=== PATIENT | male | born 1965 ===

== ENCOUNTER 2017-08-27 07:59 | Emergency (ER) | payer MEDICAID, OTHER ==
[2017-08-27 08:07] VITALS: TEMP 98; O2SAT 100
[2017-08-27 08:08] VITALS: BMI 36.6
--- NOTE | 2017-08-27 09:33 | ED PDOC ---
Upper Extremity Pain/Injury Time Seen by Provider: 08/27/17 09:12 Chief Complaint (Nursing): Upper Extremity Problem/Injury Chief Complaint (Provider): wrist pain History Per: Patient History/Exam Limitations: no limitations Onset/Duration Of Symptoms: Days (1 year) Current Symptoms Are (Timing): Still Present Additional Complaint(s): Pt. with R wrist pain on moving wrist and tapping the wrist. Pain goes into the hand ventrally. Is like a shock/sharp pain. No numbness, weakness, injury , headaches, dizziness, pain elsewhere. No chest pain. 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 Past Medical History Reviewed: Nursing Documentation, Vital Signs Vital Signs: Last Vital Signs Temp 98 F 08/27/17 08:06 Pulse 81 08/27/17 08:06 Resp BP 146/91 H 08/27/17 08:06 Pulse Ox 100 08/27/17 08:06 - Medical History PMH: No Chronic Diseases - Surgical History Surgical History: Cholecystectomy - Family History Family History: States: Unknown Family Hx - Home Medications Home Medications: Ambulatory Orders Medication Instructions Recorded Oxycodone HCl/Acetaminophen 1 each PO Q6H PRN #30 tablet 10/16/15 [Percocet 5-325 mg Tablet] Ibuprofen [Motrin] 600 mg PO TID 7 Days tab 08/27/17 - Allergies Allergies/Adverse Reactions: Allergies Allergy/AdvReac Type Severity Reaction Status Date / Time iodine Allergy SWELLING Verified 10/14/15 10:08 venom-honey bee Allergy SWELLING Verified 10/14/15 10:08 [bee venom (honey bee)] Review of Systems Constitutional: Negative for: Weakness Eyes: Negative for: Vision Change Cardiovascular: Negative for: Chest Pain Respiratory: Negative for: Shortness of Breath Musculoskeletal: Positive for: Other (wrist pain) Neurological: Negative for: Weakness, Headache, Dizziness Physical Exam - Reviewed Nursing Documentation Reviewed: Yes Vital Signs Reviewed: Yes - Physical Exam Appears: Positive for: Non-toxic, No Acute Distress Head Exam: Positive for: ATRAUMATIC, NORMAL INSPECTION, NORMOCEPHALIC Neck: Positive for: Normal, Painless ROM, Supple Cardiovascular/Chest: Positive for: Regular Rate, Rhythm Respiratory: Positive for: Normal Breath Sounds Pulses-Radial (L): 2+ Pulses-Radial (R): 2+ Extremity: Positive for: Tenderness (R wrist anterior; pain on tapping carpal area where pain goes into hand ventral.). Negative for: Normal ROM (pain on movement of wrist and pain on making a fist), Deformity, Swelling Neurologic/Psych: Positive for: Alert, Oriented. Negative for: Motor/Sensory Deficits - ECG O2 Sat by Pulse Oximetry: 100 - Radiology X-Ray: Read By Radiologist X-Ray Interpretation: No Acute Disease - Progress ED Course And Treament: 1106: Stable. AAOx3. Pain free. Tolerated PO. Will give wrist splint. Fu with hand and pcp. Procedures - Splinting Location: R wrist Pre-Made Type: velcro Splint: wrist Pre-Proc Neuro Vasc Exam: normal Post-Proc Neuro Vasc Exam: normal Disposition - Clinical Impression Clinical Impression: Carpal tunnel syndrome - Patient ED Disposition Is Patient to be Admitted: No Counseled Patient/Family Regarding: Studies Performed, Diagnosis, Need For Followup, Rx Given - Disposition Referrals: Hunter Zavaleta MD [Medical Doctor] - 08/31/17 [facility] [Outside] - 08/31/17 Disposition: Routine/Home Disposition Time: 10:07 Condition: STABLE Additional Instructions: Return if not better in 3 days. Prescriptions: Ibuprofen [Motrin] 600 mg PO TID 7 Days tab Instructions: Carpal Tunnel Syndrome Forms: [employer] (Danish)
--- NOTE | 2017-08-27 09:55 | RAD ---
PROCEDURE: Right Wrist Radiographs. HISTORY: pain COMPARISON: None. FINDINGS: BONES: No acute fracture. JOINTS: Unremarkable. SOFT TISSUES: Normal. OTHER FINDINGS: None. IMPRESSION: No demonstrated fracture or dislocation.
[2017-08-27 11:23] VITALS: BP 149/74; PULSE 67; RESP 18
== END 2017-08-27 11:23 | disposition home or self-care (01) ==
LOC: H.ER 07:59
DX: G56.00 Carpal tunnel syndrome, unspecified upper limb (principal)

== ENCOUNTER 2018-02-17 07:53 | Emergency (ER) | payer OTHER ==
[2018-02-17 07:53] VITALS: BMI 36.6
[2018-02-17] MEDS ORDERED: Sodium Chloride 0.9% 1,000 ML IV STA (08:52)
--- NOTE | 2018-02-17 08:54 | ED PDOC ---
HPI: Abdomen Time Seen by Provider: 02/17/18 08:07 Chief Complaint (Nursing): Abdominal Pain Chief Complaint (Provider): lower abdominal pain History Per: Patient History/Exam Limitations: no limitations Onset/Duration Of Symptoms: Days (yesterday at 08:00) Current Symptoms Are (Timing): Still Present Location Of Pain/Discomfort: Other (acros lower abdomen) Associated Symptoms: Chills. denies: Fever, Nausea, Vomiting, Diarrhea, Back Pain, Constipation, Urinary Symptoms Additional Complaint(s): Boo Felipe is a 52 year old male, with no significant past medical history, who presents to the emergency department complaining of a constant lower abdominal pain onset since yesterday at 08:00. He took x2 Aleve last night without relief. Patient also reports chills at night and some dysuria but denies any fever, nausea, vomit, diarrhea, hematochezia, back pain, shoulder pain, or headache. No further medical complaints. PMD: None provided. Past Medical History Reviewed: Historical Data, Nursing Documentation, Vital Signs Vital Signs: Last Vital Signs Temp 99.3 F 02/17/18 07:56 Pulse 92 H 02/17/18 07:56 Resp 16 02/17/18 07:56 BP 144/80 02/17/18 07:56 Pulse Ox 95 02/17/18 12:42 - Medical History PMH: No Chronic Diseases - Surgical History Surgical History: Cholecystectomy - Family History Family History: States: Unknown Family Hx - Social History Current smoker - smoking cessation education provided: No Alcohol: None Drugs: Denies - Home Medications Home Medications: Ambulatory Orders Medication Instructions Recorded Oxycodone HCl/Acetaminophen 1 each PO Q6H PRN #30 tablet 10/16/15 [Percocet 5-325 mg Tablet] Ibuprofen [Motrin] 600 mg PO TID 7 Days tab 08/27/17 AMPicillin [Ampicillin] 500 mg PO QID #40 cap 02/17/18 Acetaminophen [Tylenol 325mg tab] 650 mg PO Q6H PRN #50 tab 02/17/18 Metronidazole 500 mg PO TID #30 tab 02/17/18 - Allergies Allergies/Adverse Reactions: Allergies Allergy/AdvReac Type Severity Reaction Status Date / Time iodine Allergy SWELLING Verified 10/14/15 10:08 venom-honey bee Allergy SWELLING Verified 10/14/15 10:08 [bee venom (honey bee)] Review of Systems ROS Statement: Except As Marked, All Systems Reviewed And Found Negative Constitutional: Positive for: Chills. Negative for: Fever Gastrointestinal: Positive for: Abdominal Pain (lower). Negative for: Nausea, Vomiting, Diarrhea, Hematochezia Musculoskeletal: Negative for: Shoulder Pain, Back Pain Neurological: Negative for: Headache Physical Exam - Reviewed Nursing Documentation Reviewed: Yes Vital Signs Reviewed: Yes - Physical Exam Appears: Positive for: Uncomfortable (moderate discomfort) Head Exam: Positive for: ATRAUMATIC, NORMAL INSPECTION, NORMOCEPHALIC Skin: Positive for: Normal Color, Warm, Dry Eye Exam: Positive for: Normal appearance, EOMI, PERRL Neck: Positive for: Painless ROM Cardiovascular/Chest: Positive for: Regular Rate, Rhythm. Negative for: Murmur Respiratory: Positive for: Normal Breath Sounds. Negative for: Respiratory Distress Gastrointestinal/Abdominal: Positive for: Soft, Tenderness (bilateral, much more severe on left side than right.), Rebound (mild rebound tenderness on right and left side) Back: Positive for: Normal Inspection. Negative for: L CVA Tenderness, R CVA Tenderness Extremity: Positive for: Normal ROM (upper and lower extremities). Negative for : Deformity, Swelling Neurologic/Psych: Positive for: Alert, Oriented. Negative for: Motor/Sensory Deficits - Laboratory Results Result Diagrams: 02/17/18 08:56 02/17/18 08:56 - ECG O2 Sat by Pulse Oximetry: 95 (RA) Pulse Ox Interpretation: Normal Medical Decision Making Medical Decision Making: Time: 08:07 Initial Impression: abdominal pain Initial Plan: --Abd & Pelvis IV Contrast [CT] --CMP --Urine dipstick --CBC w/ differential --Toradol 30 mg IV --Sodium Chloride 1,000 ml IV 1,000 mls/hr --Reevaluation 12:34 Abdomen/Pelvis CT FINDINGS: LOWER THORAX: Unremarkable nine 8 subpleural nodule in right lower lobe. Several additional 2- 3 mm nodules are seen in the right middle lobe, lateral segment. Followup as per Fleischner society criteria with noncontrast CT in 6-12 months. No other mass identified at lung bases. . LIVER: Diffusely diminished attenuation consistent with extensive fatty infiltration. Normal size. No mass. Smooth contour. No biliary dilatation. GALLBLADDER AND BILE DUCTS: Status post cholecystectomy. PANCREAS: Unremarkable. No gross lesion or ductal dilatation. SPLEEN: Unremarkable. ADRENALS: Unremarkable. No mass. KIDNEYS AND URETERS: Several 2 mm nonobstructing calculi bilaterally. 2.3 cm rounded fluid density mass mid right kidney, likely cyst. No other renal mass. No hydronephrosis. VASCULATURE: Unremarkable. No aortic aneurysm. BOWEL: Acute sigmoid diverticulitis. Diverticulosis with mural thickening and very sigmoidal inflammatory change. No abscess. No free air. No bowel obstruction. No other abnormal bowel loops are identified. APPENDIX: Unremarkable. Normal appendix. PERITONEUM: Unremarkable. No free fluid. No free air. LYMPH NODES: Unremarkable. No enlarged lymph nodes. BLADDER: Unremarkable. REPRODUCTIVE: Mild prostate enlargement. BONES: No acute fracture. OTHER FINDINGS: None. IMPRESSION: Acute sigmoid diverticulitis. No evidence of abscess or free air. Several tiny nonobstructing renal calculi bilaterally. Fatty infiltration of the liver. ----- Scribe Attestation: Documented by Pio Marquez, acting as a scribe for Starr Vasquez MD. Provider Scribe Attestation: All medical record entries made by the Scribe were at my direction and personally dictated by me. I have reviewed the chart and agree that the record accurately reflects my personal performance of the history, physical exam, medical decision making, and the department course for this patient. I have also personally directed, reviewed, and agree with the discharge instructions and disposition. Disposition - Clinical Impression Clinical Impression: Diverticula of colon - Patient ED Disposition Is Patient to be Admitted: No Doctor Will See Patient In The: Office Counseled Patient/Family Regarding: Diagnosis, Need For Followup, Rx Given - Disposition Referrals: [facility] [Outside] [facility] [Outside] Disposition: Routine/Home Disposition Time: 14:20 Condition: STABLE Prescriptions: Acetaminophen [Tylenol 325mg tab] 650 mg PO Q6H PRN #50 tab PRN Reason: Pain, Mild (1-3) AMPicillin [Ampicillin] 500 mg PO QID #40 cap Metronidazole 500 mg PO TID #30 tab Instructions: Diverticulitis (DC) Forms: [facility] (Chinese) Print Language: SINHALA
[2018-02-17 09:12] LABS: BASO % 0.3 % (0.0-2.0); EOS # 0.1 K/uL (0.0-0.7); EOS % 1.1 % (0.0-4.0); LYMPH # 1.9 K/uL (1.0-4.3); LYMPH % 14.7 % (20.0-40.0); MEAN CELL VOLUME 92.8 fl (80.0-94.0); MEAN CORPUSCULAR HGB CONC 35.5 g/dL (33.0-37.0); MEAN PLATELET VOLUME 8.6 fl (7.2-11.7); MONO # 1.2 K/uL (0.0-0.8); MONO % 9.6 % (0.0-10.0); NEUT # 9.4 K/uL (1.8-7.0); NEUT % 74.3 % (50.0-75.0); RBC 4.86 Mil/uL (4.40-5.90); RED CELL DISTRIBUTION WIDTH 13.7 % (11.5-14.5); WHITE BLOOD COUNT 12.7 K/uL (4.8-10.8)
[2018-02-17 09:27] LABS: ALB/GLOB RATIO 1.4 (1.0-2.1); ALBUMIN 4.4 g/dL (3.5-5.0); ALT/SGPT 64 U/L (21-72); AST/SGOT 44 U/L (17-59); BLOOD UREA NITROGEN 11 mg/dl (9-20); CALCIUM 9.3 mg/dL (8.4-10.2); GFR NON-AFRICAN AMERICAN > 60
[2018-02-17] MEDS ORDERED: Iohexol 300 100 ML IJ ONE (10:41)
[2018-02-17] MEDS ORDERED: Sodium Chloride 0.9% 0 ML IV ONE (10:41)
--- NOTE | 2018-02-17 12:35 | CT ---
Date of service: 02/17/2018 PROCEDURE: CT Abdomen and Pelvis without intravenous contrast HISTORY: lower abd pain/tenderness L>R COMPARISON: None. TECHNIQUE: Without contrast.. Contrast dose: 0 Radiation dose: Total exam DLP = 939.55 mGy-cm. This CT exam was performed using one or more of the following dose reduction techniques: Automated exposure control, adjustment of the mA and/or kV according to patient size, and/or use of iterative reconstruction technique. FINDINGS: LOWER THORAX: Unremarkable nine 8 subpleural nodule in right lower lobe. Several additional 2-3 mm nodules are seen in the right middle lobe, lateral segment. Followup as per Fleischner society criteria with noncontrast CT in 6-12 months. No other mass identified at lung bases. . LIVER: Diffusely diminished attenuation consistent with extensive fatty infiltration. Normal size. No mass. Smooth contour. No biliary dilatation. GALLBLADDER AND BILE DUCTS: Status post cholecystectomy. PANCREAS: Unremarkable. No gross lesion or ductal dilatation. SPLEEN: Unremarkable. ADRENALS: Unremarkable. No mass. KIDNEYS AND URETERS: Several 2 mm nonobstructing calculi bilaterally. 2.3 cm rounded fluid density mass mid right kidney, likely cyst. No other renal mass. No hydronephrosis. VASCULATURE: Unremarkable. No aortic aneurysm. BOWEL: Acute sigmoid diverticulitis. Diverticulosis with mural thickening and very sigmoidal inflammatory change. No abscess. No free air. No bowel obstruction. No other abnormal bowel loops are identified. APPENDIX: Unremarkable. Normal appendix. PERITONEUM: Unremarkable. No free fluid. No free air. LYMPH NODES: Unremarkable. No enlarged lymph nodes. BLADDER: Unremarkable. REPRODUCTIVE: Mild prostate enlargement. BONES: No acute fracture. OTHER FINDINGS: None. IMPRESSION: Acute sigmoid diverticulitis. No evidence of abscess or free air. Several tiny nonobstructing renal calculi bilaterally. Fatty infiltration of the liver.
[2018-02-17] MEDS ORDERED: Piperacillin/Tazobact 3.375 GM in Sodium Chloride 0.9% 100 ML IVPB STA (12:50)
[2018-02-17] MEDS ORDERED: metroNIDAZOLE 500mg/100ml NS 100 ML IVPB ONE ×2 (12:55→13:30)
[2018-02-17] MEDS ORDERED: Piperacillin/Tazobact 3.375 gm Inj IVPB ONE (13:30)
[2018-02-17 16:25] VITALS: BP 132/74; PULSE 84; RESP 18; TEMP 98; O2SAT 98
== END 2018-02-17 16:25 | disposition home or self-care (01) ==
LOC: H.ER 07:53
DX: K57.32 Diverticulitis of large intestine without perforation or abscess without bleeding (principal)
CPT/HCPCS: 74176; 80053; 85025; 96374; 96375; 99284; J1885; J2543; J7030

== ENCOUNTER 2018-03-13 08:17 | Emergency (ER) | payer OTHER ==
[2018-03-13 08:17] VITALS: BMI 36.6
[2018-03-13 08:23] VITALS: RESP 18; TEMP 97.8
[2018-03-13] MEDS ORDERED: Sodium Chloride 0.9% 1,000 ML IV STA (09:02)
[2018-03-13 09:26] LABS: BASO % 0.7 % (0.0-2.0); EOS # 0.1 K/uL (0.0-0.7); EOS % 1.9 % (0.0-4.0); HEMOGLOBIN 16.9 g/dL (12.0-18.0); LYMPH # 2.1 K/uL (1.0-4.3); LYMPH % 29.7 % (20.0-40.0); MEAN CORPUSCULAR HEMOGLOBIN 32.7 pg (27.0-31.0); MEAN CORPUSCULAR HGB CONC 34.8 g/dL (33.0-37.0); MEAN PLATELET VOLUME 8.1 fl (7.2-11.7); MONO # 0.6 K/uL (0.0-0.8); MONO % 9.1 % (0.0-10.0); NEUT # 4.1 K/uL (1.8-7.0); NEUT % 58.6 % (50.0-75.0); RBC 5.16 Mil/uL (4.40-5.90); RED CELL DISTRIBUTION WIDTH 13.8 % (11.5-14.5)
--- NOTE | 2018-03-13 09:35 | ED PDOC ---
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 denies: Cramping, Burning, Pressure Associated Symptoms: Urinary Symptoms (strong odor). denies: Fever, Chills, Nausea, Vomiting, Diarrhea, Loss Of Appetite, Back Pain Exacerbating Factors: Cough Alleviating Factors: Other (relaxation) Last Bowel Movement: Yesterday (loose but not diarrhea) <Kajal Vargas - Last Filed: 03/13/18 11:24> <Jose Mota - Last Filed: 03/13/18 11:31> Time Seen by Provider: 03/13/18 08:23 Chief Complaint (Nursing): Abdominal Pain Additional Complaint(s): 52-year-old male with PMH of diverticulitis 1 month prior presents to ED with a 2 day history of abdominal pain. He describes the pain as non-radiating, sharp, 8/10 severity, worse at night but constant. Coughing aggravates the pain and relaxation alleviates it. Patient feels that pain is similar to diverticulitis he was diagnosed with one month prior. He admits to a strong odor of his urine but denies any urgency, frequency and retention. He denies any fever, chills, SOB, chest pain, vomiting, constipation, and diarrhea. PCP: None PMH: Diverticulitis 01/2018 PSx: Natalie 2015 FHx: Mother - passed young, Father - Parkinsons Allergy: Bees, Contrast (anaphylaxis) Meds: None Social: Denies EtOH, tobacco, drugs, caffeine (Kajal Vargas) Supervising Attending Note <Kajal Vargas - Last Filed: 03/13/18 11:24> - Supervising Attending Note The Documented history was done by the: Physician Clinical Nursing Director The documented physical exam was done by the: Physician Clinical Nursing Director The documented procedures were done by the: Physician Clinical Nursing Director - Attestation: I have personally seen and examined this patient.: Yes I have fully participated in the care of the patient.: Yes I have reviewed all pertinent clinical information: Yes <Jose Mota - Last Filed: 03/13/18 11:31> - Notes: Notes:: Abd pain (Jose Mota) Past Medical History - Medical History PMH: Diverticulitis - Surgical History Surgical History: Appendectomy, Cholecystectomy - Family History Family History: States: Other - Social History Current smoker - smoking cessation education provided: No Alcohol: None Drugs: Denies <Kajal Vargas - Last Filed: 03/13/18 11:24> <Jose Mota - Last Filed: 03/13/18 11:31> Vital Signs: Last Vital Signs Temp 97.8 F 03/13/18 08:22 Pulse 68 03/13/18 08:22 Resp 18 03/13/18 08:22 BP 131/81 03/13/18 08:22 Pulse Ox 95 03/13/18 11:26 - Home Medications Home Medications: Ambulatory Orders Medication Instructions Recorded Oxycodone HCl/Acetaminophen 1 each PO Q6H PRN #30 tablet 10/16/15 [Percocet 5-325 mg Tablet] Ibuprofen [Motrin] 600 mg PO TID 7 Days tab 08/27/17 AMPicillin [Ampicillin] 500 mg PO QID #40 cap 02/17/18 Acetaminophen [Tylenol 325mg tab] 650 mg PO Q6H PRN #50 tab 02/17/18 Metronidazole 500 mg PO TID #30 tab 02/17/18 Ciprofloxacin HCl [Cipro] 500 mg PO BID 7 Days tab 03/13/18 Ibuprofen [Motrin] 600 mg PO TID 7 Days tab 03/13/18 Metronidazole [Flagyl] 500 mg PO TID 7 Days tablet 03/13/18 - Allergies Allergies/Adverse Reactions: Allergies Allergy/AdvReac Type Severity Reaction Status Date / Time iodine Allergy SWELLING Verified 10/14/15 10:08 venom-honey bee Allergy SWELLING Verified 10/14/15 10:08 [bee venom (honey bee)] Review of Systems Constitutional: Negative for: Fever, Chills, Sweats, Weakness, Weight loss Eyes: Negative for: Vision Change Cardiovascular: Negative for: Chest Pain, Palpitations Respiratory: Negative for: Cough, Shortness of Breath Gastrointestinal: Negative for: Nausea, Vomiting, Diarrhea, Constipation Genitourinary Male: Negative for: Dysuria, Frequency, Incontinence Neurological: Negative for: Weakness, Numbness <Kajal Vargas - Last Filed: 03/13/18 11:24> Physical Exam - Physical Exam Appears: Positive for: Non-toxic, No Acute Distress Head Exam: Positive for: ATRAUMATIC Skin: Positive for: Normal Color Eye Exam: Positive for: Normal appearance Cardiovascular/Chest: Positive for: Regular Rate, Rhythm Respiratory: Positive for: Normal Breath Sounds. Negative for: Wheezing Gastrointestinal/Abdominal: Positive for: Bowel Sounds, Tenderness (suprapubic, RLQ). Negative for: Mass, Distended, Guarding, Rebound Neurologic/Psych: Positive for: Alert, Oriented <Kajal Vargas - Last Filed: 03/13/18 11:24> - Physical Exam Cardiovascular/Chest: Positive for: Regular Rate, Rhythm Respiratory: Positive for: Normal Breath Sounds Gastrointestinal/Abdominal: Positive for: Tenderness (RLQ) Back: Negative for: Normal Inspection, R CVA Tenderness <Jose Mota - Last Filed: 03/13/18 11:31> - Laboratory Results Result Diagrams: 03/13/18 09:22 03/13/18 09:22 - ECG O2 Sat by Pulse Oximetry: 95 <Kajal Vargas - Last Filed: 03/13/18 11:24> - Laboratory Results Result Diagrams: 03/13/18 09:22 03/13/18 09:22 <Jose Mota - Last Filed: 03/13/18 11:31> - Progress ED Course And Treament: 1131: Stable. AAOx3. Pain free. Tolerated PO. Fu with gi. (Jose Mota) Disposition - Patient ED Disposition Is Patient to be Admitted: No - Disposition Disposition: Routine/Home Disposition Time: :18 <Kajal Vargas - Last Filed: 03/13/18 11:24> <Jose Mota - Last Filed: 03/13/18 11:31> - Clinical Impression Clinical Impression: Diverticulitis - Disposition Referrals: Flavio Espinoza MD [Staff Provider] - 03/16/18 Condition: STABLE Additional Instructions: Return if not better in 3 days. Prescriptions: Ciprofloxacin HCl [Cipro] 500 mg PO BID 7 Days tab Ibuprofen [Motrin] 600 mg PO TID 7 Days tab Metronidazole [Flagyl] 500 mg PO TID 7 Days tablet Instructions: Diverticulitis Forms: [facility] (Cook Islander) Print Language: MALAY
[2018-03-13 09:51] LABS: ALB/GLOB RATIO 1.1 (1.0-2.1); ALBUMIN 4.4 g/dL (3.5-5.0); ALT/SGPT 69 U/L (21-72); AST/SGOT 57 U/L (17-59); BLOOD UREA NITROGEN 10 mg/dl (9-20); CALCIUM 9.5 mg/dL (8.4-10.2); GFR NON-AFRICAN AMERICAN > 60
--- NOTE | 2018-03-13 11:06 | CT ---
Date of service: 03/13/2018 PROCEDURE: CT Abdomen and Pelvis without intravenous contrast HISTORY: R/O stone COMPARISON: None. TECHNIQUE: Technique. Contrast dose: Radiation dose: Total exam DLP = mGy-cm. This CT exam was performed using one or more of the following dose reduction techniques: Automated exposure control, adjustment of the mA and/or kV according to patient size, and/or use of iterative reconstruction technique. FINDINGS: LOWER THORAX: Unremarkable. LIVER: Fatty liver no gross lesion or ductal dilatation. GALLBLADDER AND BILE DUCTS: Status post cholecystectomy. PANCREAS: Unremarkable. No gross lesion or ductal dilatation. SPLEEN: Unremarkable. ADRENALS: Unremarkable. No mass. KIDNEYS AND URETERS: Bilateral renal cysts. Tiny right renal calculi. No hydronephrosis VASCULATURE: Unremarkable. No aortic aneurysm. BOWEL: Left-sided colonic diverticulosis with pericolonic fat infiltration consistent with acute diverticulitis. No abscess or pneumoperitoneum APPENDIX: Unremarkable. Normal appendix. PERITONEUM: Unremarkable. No free fluid. No free air. LYMPH NODES: Unremarkable. No enlarged lymph nodes. BLADDER: Unremarkable. REPRODUCTIVE: Prostate enlargement. Correlate with PSA levels. BONES: No acute fracture. OTHER FINDINGS: None. IMPRESSION: Left-sided colonic diverticulosis with pericolonic fat infiltration consistent with acute diverticulitis. No abscess or pneumoperitoneum
[2018-03-13 11:55] VITALS: BP 128/80; PULSE 74; O2SAT 98
== END 2018-03-13 11:53 | disposition home or self-care (01) ==
LOC: H.ER 08:17
DX: K57.32 Diverticulitis of large intestine without perforation or abscess without bleeding (principal)
CPT/HCPCS: 74176; 80053; 85025; 96374; 99283; J1885; J7030